=== PATIENT | female | born 1950 | race Caucasian/White ===

== ENCOUNTER 2020-07-28 05:35 | Day surgery (SDC) | payer OTHER, BC ==
[2020-07-26 16:33] VITALS: BMI 27.3
[2020-07-28 12:03] VITALS: TEMP 96.9
[2020-07-28 13:03] VITALS: BP 148/66; PULSE 60
== END 2020-07-28 12:10 | disposition home or self-care (01) ==
LOC: JASU-ENDO 05:35
PROVIDERS: ATTEND Internal Medicine Gastroenterology
PROC: 0DB78ZX Excision of Stomach, Pylorus, Via Natural or Artificial Opening Endoscopic, Diagnostic (ICD-10-PCS; 2020-07-28)
PROC: 0DB18ZX Excision of Upper Esophagus, Via Natural or Artificial Opening Endoscopic, Diagnostic (ICD-10-PCS; 2020-07-28)
PROC: 0DB28ZX Excision of Middle Esophagus, Via Natural or Artificial Opening Endoscopic, Diagnostic (ICD-10-PCS; 2020-07-28)
PROC: 0DB98ZX Excision of Duodenum, Via Natural or Artificial Opening Endoscopic, Diagnostic (ICD-10-PCS; 2020-07-28)
PROC: 0DB38ZX Excision of Lower Esophagus, Via Natural or Artificial Opening Endoscopic, Diagnostic (ICD-10-PCS; principal; 2020-07-28 11:00)
DX: K25.9 Gastric ulcer, unspecified as acute or chronic, without hemorrhage or perforation (principal); K44.9 Diaphragmatic hernia without obstruction or gangrene; K22.10 Ulcer of esophagus without bleeding; K29.00 Acute gastritis without bleeding; K26.9 Duodenal ulcer, unspecified as acute or chronic, without hemorrhage or perforation; K29.80 Duodenitis without bleeding; K21.00 Gastro-esophageal reflux disease with esophagitis, without bleeding
CPT/HCPCS: 88305-TC; 88342-TC

== ENCOUNTER 2021-03-28 04:44 | Day surgery (SDC) | payer OTHER, BC ==
[2021-03-23 15:29] VITALS: BMI 25.0
[2021-03-28 10:57] VITALS: TEMP 97.5
[2021-03-28 11:44] VITALS: BP 134/52; PULSE 61
== END 2021-03-28 12:03 | disposition home or self-care (01) ==
LOC: JASU-ENDO 04:44
PROVIDERS: ATTEND Internal Medicine Gastroenterology
PROC: 0DBH8ZX Excision of Cecum, Via Natural or Artificial Opening Endoscopic, Diagnostic (ICD-10-PCS; principal; 2021-03-28 10:00)
DX: D12.0 Benign neoplasm of cecum (principal); K57.30 Diverticulosis of large intestine without perforation or abscess without bleeding; K64.8 Other hemorrhoids; Z86.010 Personal history of colon polyps; I25.10 Atherosclerotic heart disease of native coronary artery without angina pectoris; I10 Essential (primary) hypertension; Z95.5 Presence of coronary angioplasty implant and graft

== ENCOUNTER 2021-05-12 14:40 | Emergency (ER) | payer OTHER, BC ==
[2021-05-12 14:58] VITALS: TEMP 97.8; BMI 25.0
[2021-05-12] MEDS ORDERED: SODIUM CHLORIDE 1,000 ML IV STA (15:44)
[2021-05-12] MEDS ORDERED: PIPERACILLIN/TAZOB 3.375 GM 3.375 GM in DEXTROSE 5%-WATER - 50 ML IVPB ONE (15:44)
[2021-05-12] MEDS ORDERED: PIPERACILLIN/TAZOB 3.375 GM 3.375 GM/50 ML BAG IVPB ONE (15:51)
[2021-05-12] MEDS ORDERED: LISINOPRIL 20 MG TABLET PO ONE (15:54)
[2021-05-12] MEDS ORDERED: HYDROCHLOROTHIAZIDE 25 MG TABLET (FP) PO ONE (15:54)
[2021-05-12 16:15] LABS: BASO % 1.6 % (0-2.0); EOS % 0.7 % (0-4.5); HEMATOCRIT 44.3 % (32.4-45.2); HEMOGLOBIN 14.7 GM/dL (10.7-15.3); LYMPH % 14.4 % (8-40); MCH 29.8 pg (25.7-33.7); MCHC 33.2 g/dl (32.0-36.0); MEAN CELL VOLUME 89.8 fl (80-96); MEAN PLT VOLUME 8.4 fl (7.5-11.1); MONO % 9.5 % (3.8-10.2); NEUT % 73.8 % (42.8-82.8); PLATELET COUNT 185 10^3/uL (134-434); RBC 4.93 M/mm3 (3.60-5.2); RDW 13.3 % (11.6-15.6); WHITE BLOOD COUNT 7.3 K/mm3 (4.0-10.0)
[2021-05-12 16:17] LABS: CALCIUM 9.6 mg/dL (8.5-10.1)
[2021-05-12 16:18] LABS: ALBUMIN 4.3 g/dl (3.4-5.0); BLOOD UREA NITROGEN 13.5 mg/dL (7-18)
[2021-05-12 16:21] LABS: CREATININE 0.9 mg/dL (0.55-1.3)
[2021-05-12 16:23] LABS: BILIRUBIN,TOTAL 0.7 mg/dL (0.2-1); TOT PROT 7.9 g/dl (6.4-8.2)
[2021-05-12 16:41] VITALS: BP 159/79; PULSE 81
== END 2021-05-12 17:05 | disposition home or self-care (01) ==
LOC: JERFT 14:40
PROC: 3E03329 Introduction of Other Anti-infective into Peripheral Vein, Percutaneous Approach (ICD-10-PCS; principal; 2021-05-12)
PROC: 3E0337Z Introduction of Electrolytic and Water Balance Substance into Peripheral Vein, Percutaneous Approach (ICD-10-PCS; 2021-05-12)
DX: L03.012 Cellulitis of left finger (principal); W55.01XA Bitten by cat, initial encounter
CPT/HCPCS: 36415; 73140-TC-LT-FY; 80053; 85025; 99284-25